=== PATIENT | male | born 1960 | race Caucasian/White ===

== ENCOUNTER 2017-04-19 13:53 | Emergency (ER) | payer MEDICARE ==
[2017-04-19] MEDS ORDERED: Sodium Chloride 0.9% 10 ML Syringe FLUSH PRN (14:01)
[2017-04-19 14:54] LABS: CHLORIDE,CL 96 mmol/L (98-107); SODIUM,NA 135 mmol/L (136-145)
[2017-04-19] MEDS ORDERED: cloNIDine 0.1 MG Tab PO ONE (15:06)
--- NOTE | 2017-04-19 15:10 | EDM.PDOC ---
ED HPI GENERAL MEDICAL PROBLEM - General Chief Complaint: General Stated Complaint: uncontrollable shaking Time Seen by Provider: 04/19/17 14:00 Source of Information: Reports: Patient History Limitations: Reports: No Limitations - History of Present Illness INITIAL COMMENTS - FREE TEXT/NARRATIVE: Feels shaky today. BP increased today. Did drink large amount of alcohol yesterday No chest pain No SOB Onset: Gradual Duration: Day(s): Location: Reports: Generalized Severity: Moderate Associated Symptoms: Reports: No Other Symptoms Back Pain Score (Numeric/FACES): 8 - Related Data Allergies Allergy/AdvReac Type Severity Reaction Status Date / Time No Known Allergies Allergy Verified 04/19/17 13:55 Home Meds: Home Meds DULoxetine [Cymbalta] 60 mg PO DAILY 04/19/17 [History] Losartan [Cozaar] 100 mg PO DAILY 04/19/17 [History] Metoprolol Tartrate 25 mg PO DAILY 04/19/17 [History] Multivitamin [Men's Multi-Vitamin] 1 tab PO DAILY 04/19/17 [History] Omeprazole 20 mg PO DAILY 04/19/17 [History] Past Medical History HEENT History: Reports: Impaired Vision Cardiovascular History: Reports: Hypertension Respiratory History: Reports: Sleep Apnea Gastrointestinal History: Reports: GERD Musculoskeletal History: Reports: Back Pain, Chronic Psychiatric History: Reports: Depression - Past Surgical History GI Surgical History: Reports: Colonoscopy Other GI Surgeries/Procedures: Hemmorrhoid surgery Other Musculoskeletal Surgeries/Procedures:: C5- C7 Spinal fusion. S1-L2 Spinal fusion. Right elbow surgery Social & Family History - Tobacco Use Smoking Status *Q: Current Every Day Smoker Years of Tobacco use: 30 Packs/Tins Daily: 1 - Caffeine Use Caffeine Use: Reports: Other Caffeine Use Comment: Rarely - Alcohol Use Days Per Week of Alcohol Use: 7 Number of Drinks Per Day: 8 Total Drinks Per Week: 56 Date of Last Drink: 04/19/17 Time of Last Drink: 00:00 - Recreational Drug Use Recreational Drug Use: Yes Recreational Drug Type: Reports: Marijuana/Hashish Recreational Drug Use Frequency: Weekly ED ROS GENERAL - Review of Systems Review Of Systems: See Below Constitutional: Reports: Malaise, Weakness HEENT: Reports: No Symptoms Respiratory: Reports: No Symptoms Cardiovascular: Reports: No Symptoms GI/Abdominal: Reports: No Symptoms Musculoskeletal: Reports: No Symptoms ED EXAM, GENERAL - Physical Exam Exam: See Below Exam Limited By: No Limitations General Appearance: Mild Distress Throat/Mouth: Normal Oropharynx Neck: Supple Respiratory/Chest: Lungs Clear Cardiovascular: Regular Rate, Rhythm GI/Abdominal: Soft Extremities: No Pedal Edema Course - Vital Signs Last Recorded V/S: Last Vital Signs Temp 36.7 C 04/19/17 14:25 Pulse 109 H 04/19/17 14:25 Resp 22 H 04/19/17 14:25 BP 151/91 H 04/19/17 14:25 Pulse Ox 100 04/19/17 14:25 - Orders/Labs/Meds Orders: Active Orders 24 hr Category Date Time Status Sodium Chloride 0.9% [Normal Saline] 500 ml Med 04/19/17 15:15 Ordered IV .BOLUS Sodium Chloride 0.9% [Saline Flush] Med 04/19/17 14:01 Active 10 ml FLUSH ASDIRECTED PRN cloNIDine [Catapres] Med 04/19/17 15:06 Once 0.1 mg PO ONETIME ONE Saline Lock Insert [OM.PC] Routine Oth 04/19/17 14:01 Ordered Medication Orders Sodium Chloride (Saline Flush) 10 ml FLUSH ASDIRECTED PRN PRN Reason: Keep Vein Open Labs: Laboratory Tests 04/19/17 04/19/17 04/19/17 Range/Units 13:58 14:08 14:08 WBC 5.9 (4.0-10.2) K/uL RBC 4.28 L (4.33-5.41) M/uL Hgb 14.7 (13.1-16.8) g/dL Hct 42.7 (39.0-49.0) % MCV 99.8 H (84.0-98.0) fL MCH 34.3 H (28.2-33.3) pg MCHC 34.4 (31.7-36.0) g/dL RDW 13.0 (11.2-14.1) % Plt Count 124 L (150-350) K/uL Neut % (Auto) 72.3 (45.0-80.0) % Lymph % (Auto) 20.4 (10.0-50.0) % [place] % (Auto) 6.1 (2.0-14.0) % Eos % (Auto) 0.7 (0.0-5.0) % Baso % (Auto) 0.5 (0.0-2.0) % Neut # (Auto) 4.24 (1.40-7.00) K/uL Lymph # (Auto) 1.20 (0.50-3.50) K/uL [place] # (Auto) 0.36 (0.00-1.00) K/uL Eos # (Auto) 0.04 (0.00-0.50) K/uL Baso # (Auto) 0.03 (0.00-0.20) K/uL Sodium 135 L (136-145) mmol/L Potassium 3.2 L (3.5-5.1) mmol/L Chloride 96 L (98-107) mmol/L Carbon Dioxide 26.6 (21.0-32.0) mmol/L BUN 9 (7-18) mg/dL Creatinine 0.95 (0.51-1.17) mg/dL Est Cr Clr Drug Dosing 115.09 mL/min Estimated GFR (MDRD) > 60 mL/min Glucose 137 H (74-106) mg/dL POC Glucose 123 H (65-110) mg/dl Calcium 9.0 (8.5-10.1) mg/dL Total Bilirubin 3.2 H (0.2-1.0) mg/dL AST 425 H (15-37) U/L ALT 318 H (12-78) U/L Alkaline Phosphatase 154 H (46-116) IU/L Total Protein 8.0 (6.4-8.2) g/dL Albumin 4.1 (3.4-5.0) g/dL Meds: Medications Generic Name Dose Route Start Last Admin Trade Name Freq PRN Reason Stop Dose Admin Sodium Chloride 10 ml 04/19/17 14:01 Saline Flush FLUSH ASDIRECTED PRN Keep Vein Open - Re-Assessments/Exams Free Text/Narrative Re-Assessment/Exam: 04/19/17 15:08 Pt given IVF X 1 L Pt given Clonidine Departure - Departure Time of Disposition: 16:30 Disposition: Home, Self-Care 01 Clinical Impression: Hypertension Qualifiers: Hypertension type: essential hypertension Qualified Code(s): I10 - Essential ( primary) hypertension - Discharge Information Forms: ED Department Discharge Additional Instructions: Take medications as prescribed Follow up in clinic - My Orders Last 24 Hours: My Active Orders 04/19/17 14:01 Sodium Chloride 0.9% [Saline Flush] 10 ml FLUSH ASDIRECTED PRN Saline Lock Insert [OM.PC] Routine 04/19/17 15:06 cloNIDine [Catapres] 0.1 mg PO ONETIME ONE 04/19/17 15:15 Sodium Chloride 0.9% [Normal Saline] 500 ml IV .BOLUS - Assessment/Plan Last 24 Hours: My Active Orders 04/19/17 14:01 Sodium Chloride 0.9% [Saline Flush] 10 ml FLUSH ASDIRECTED PRN Saline Lock Insert [OM.PC] Routine 04/19/17 15:06 cloNIDine [Catapres] 0.1 mg PO ONETIME ONE 04/19/17 15:15 Sodium Chloride 0.9% [Normal Saline] 500 ml IV .BOLUS
[2017-04-19] MEDS ORDERED: Sodium Chloride 0.9% 500 ML IV SCH (15:15)
[2017-04-19 16:32] VITALS: BP 167/103
== END 2017-04-19 16:15 | disposition home or self-care (01) ==
LOC: LL.ED 13:53
DX: I10 Essential (primary) hypertension (principal); K21.9 Gastro-esophageal reflux disease without esophagitis; F32.9 Major depressive disorder, single episode, unspecified; F17.210 Nicotine dependence, cigarettes, uncomplicated; Z79.899 Other long term (current) drug therapy
CPT/HCPCS: 36415; 80053; 82962; 85025; 96360; 99284; A9270; J7040; 99283